=== PATIENT | female | born 1980 | race Caucasian/White ===

== ENCOUNTER 2024-08-10 19:55 | Emergency (ER) | payer MEDICAID ==
[~2024-08-10] VITALS: Ht 167.6 cm; Wt 64.0 kg
[2024-08-10 20:54] LABS: BASOPHILS % (AUTO) 0.3 % (0-1); EOSINOPHILS # (AUTO) 0.1 X10'3 (0-0.9); EOSINOPHILS % (AUTO) 1.3 % (0-6); HEMATOCRIT 36.5 % (35.0-45.0); HEMOGLOBIN 12.6 g/dl (12.0-16.0); LYMPHOCYTES % (AUTO) 21.9 % (21-51); MEAN CORPUSCULAR HGB CONC 34.6 g/dL (33.0-36.5); MEAN CORPUSCULAR VOLUME 98.3 FL (78-98); MEAN PLATELET VOLUME 8.6 FL (7.4-10.4); MONOCYTES # (AUTO) 0.4 X10'3 (0-0.9); MONOCYTES % (AUTO) 4.1 % (2-12); NEUTROPHILS # (AUTO) 6.7 X10'3 (1.8-7.7); NEUTROPHILS % (AUTO) 72.4 % (42-75); PLATELET COUNT 248 X10'3 (140-440); RED BLOOD COUNT 3.71 X10'6 (4.20-5.60); RED CELL DISTRIBUTION WIDTH 12.6 % (11.5-14.5); WHITE BLOOD COUNT 9.2 X10'3 (4.5-11.0)
[2024-08-10 20:54] LABS: BILIRUBIN,URINE NEGATIVE (Neg); CLARITY,URINE CLEAR (Clear); COLOR,URINE YELLOW (Yellow); GLUCOSE, URINE NEGATIVE (Neg); KETONES,URINE NEGATIVE (Neg); LEUKOCYTE ESTERASE ,URINE NEGATIVE (Neg); NITRITES, URINE NEGATIVE (Neg); OCCULT BLOOD,URINE NEGATIVE (Neg); PROTEIN,URINE NEGATIVE (Neg); UROBILINOGEN,URINE 0.2 E.U/dL (0.2-1.0)
[2024-08-10 20:55] LABS: URINE HCG NEGATIVE (NEG)
[2024-08-10 21:02] LABS: UA COLLECTION TYPE CLN CATCH MIDSTREAM
[2024-08-10 21:09] LABS: ALANINE AMINOTRANSFERASE 21 U/L (12-78); ALBUMIN 3.7 G/DL (3.4-5.0); ALBUMIN/GLOBULIN RATIO 1.2 (1.1-1.5); ALKALINE PHOSPHATASE 56 IU/L (46-116); ANION GAP 6 (8-16); ASPARTATE AMINO TRANSFERASE 16 U/L (10-37); BILIRUBIN,TOTAL 0.3 MG/DL (0.1-1.0); BLOOD UREA NITROGEN 26 MG/DL (7-18); BUN/CREATININE RATIO 35.6 (10.0-20.0); CALCIUM 8.7 MG/DL (8.5-10.1); CHLORIDE 104 MMOL/L (99-107); CREATININE 0.73 MG/DL (0.40-0.90); GLUCOSE 99 MG/DL (70-104); LIPASE 57 U/L (16-77); POTASSIUM 4.2 MMOL/L (3.5-5.1); SODIUM 140 MMOL/L (135-145); TOTAL CARBON DIOXIDE 30.5 MMOL/L (24-32); TOTAL PROTEIN 6.7 G/DL (6.4-8.2); eCRCL 92 ML/MIN; eGFR 87 ML/MIN
[2024-08-10 21:26] VITALS: BP 93/56; PULSE 65; RESP 16; TEMP 97.9; O2SAT 96
== END 2024-08-11 00:36 | disposition left against medical advice (07) ==
LOC: ER 19:55
DX: M54.50 Low back pain, unspecified (principal); Z53.21 Procedure and treatment not carried out due to patient leaving prior to being seen by health care provider
CPT/HCPCS: 36415; 80053; 81003; 81025; 83690; 85025

== ENCOUNTER 2025-05-17 11:00 | Inpatient (IN) | payer MEDICAID ==
[~2025-05-17] VITALS: Ht 167.6 cm; Wt 63.7 kg
--- NOTE | 2025-05-17 11:22 | Physician Documentation ---
History of Present Illness ~ Chief Complaint: Stroke Alert Stated Complaint: RT LEG NUMBNESS/DIZZNIESS Time Seen by MD: 12:56 HPI Is a pleasant 45-year-old female that presents to the emergency department for evaluation of right-sided numbness and tingling ataxia with walking and weakness reported since Friday. Patient reports that she has a significant family history for stroke most notable her mother at the age of 50. She also reports history of right ear infection for which she has recently been on Augmentin. She has chronic otitis media and has tubes in her ears bilaterally. 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 She also has history of migraine headaches Medication Reconciliation Allergies: Coded Allergies: No Known Allergies (Unverified , 05/17/25) Review of Systems All Other Systems at this time: Reviewed and Negative Constitutional: Denies: fever Respiratory: Denies: cough, orthopnea Cardiovascular: Denies: chest pain Gastrointestinal: Denies: abdominal pain, nausea, vomiting Physical Exam Vital Signs: Temperature: 98.5, Source: Temporal, Heart Rate: 73, Respiratory Rate: 18, BP: 98/56, Pulse Oximetry: 99, Weight: 63.700 Oxygen Flow Rate: 0 General Appearance Well-appearing no acute distress Head atraumatic Right TM perforated with dried blood and detritus in the external canal. No mastoid tenderness external ear intact Extraocular motions intact Pupils PERRLA Cranial nerves 2-12 intact No dysarthria no aphasia Right upper extremity 5/5 shoulder flexion elbow flexion and extension 5/5 wrist flexion 4/5 principal hardware architect strength. Intact sensation. Intact radial pulse 5/5 bilateral lower extremity strength and sensation intact warm and well- perfused Breathing Comfortably Abdomen is soft nontender Lower extremity no edema Skin pink warm dry well-perfused Progress Results/Orders Reviewed/noted all lab results: Yes Results/Orders Orders - TAYO OCHOA MD Monitor (05/17/25 11:14) 2 Large Bore Ivs (05/17/25 11:14) Chest,Single View (05/17/25 11:14) Accucheck (05/17/25 11:14) Ct Stroke Alert (05/17/25 11:30) [place] Prov.Neuro Consult (05/17/25 11:14) Page Hospitalist (05/17/25 17:27) Fill Out Med Reconciliation (05/17/25 17:27) Cta Neck/Head (05/17/25 18:01) ESR (05/17/25 17:42) C-Reactive Protein (05/17/25 17:42) Completed Orders - TAYO OCHOA MD Cbc/Diff (05/17/25 11:14) Electrocardiogram (05/17/25 11:14) Chest,Single View (05/17/25 11:14) Ct Stroke Alert (05/17/25 11:30) BMP (05/17/25 11:14) PTT (05/17/25 11:14) Pt Inr (05/17/25 11:14) Ondansetron Inj. (Zofran 4mg/2ml Vial) (05/17/25 13:25) Ringers Solution, Lacted (Lactated Ringe (05/17/25 16:00) Ketorolac Trometh 15mg/Ml Vial (Toradol (05/17/25 16:00) Cta Neck/Head (05/17/25 18:01) Iohexol 350mg/Ml 100ml (Omnipaque 350mg/ (05/17/25 17:40) Diphenhydramine Inj (Benadryl Inj.) (05/17/25 17:45) Prochlorperazine Inj (Compazine Inj) (05/17/25 17:45) Medications Received in ER Medications (Trade) Dose Ordered Sig/Jessica Route PRN Reason Start Time Stop Time Status Last Admin Dose Admin (Zofran 4mg/2ml vial) 4 mg ONCE ONCE IV 05/17/25 13:25 05/17/25 13:26 DC 05/17/25 13:36 4 MG (Tylenol tablet) 650 mg ONCE ONCE PO 05/17/25 15:30 05/17/25 15:31 DC 05/17/25 15:43 650 MG Lactated Ringer's 1,000 ml @ 1,000 mls/hr ONCE ONCE IV 05/17/25 16:00 05/17/25 16:59 DC 05/17/25 16:18 1,000 MLS/HR (Toradol injection) 15 mg ONCE ONCE IV 05/17/25 16:00 05/17/25 16:01 DC 05/17/25 16:17 15 MG (Benadryl inj.) 25 mg ONCE ONCE IV 05/17/25 17:45 05/17/25 17:46 DC 05/17/25 18:19 25 MG (Compazine inj) 10 mg ONCE ONCE IV 05/17/25 17:45 05/17/25 17:46 DC 05/17/25 18:19 10 MG Vital Signs 05/17/25 05/17/25 05/17/25 05/17/25 11:10 12:00 13:00 14:25 Temp 98.5 Pulse 73 71 64 Resp 18 18 15 16 B/P (MAP) 98/56 90/50 (63) 93/54 (67) Pulse Ox 99 98 97 O2 Flow Rate 0 0 0 05/17/25 16:17 Resp 18 Laboratory Tests Test 05/17/25 11:14 05/17/25 11:22 Glucometer 109 H White Blood Count 7.0 Red Blood Count 4.44 Hemoglobin 14.6 Hematocrit 42.1 Mean Corpuscular Volume 94.9 Mean Corpuscular Hemoglobin 32.9 H Mean Corpuscular Hemoglobin Concent 34.7 Red Cell Distribution Width 12.4 Platelet Count 285 Mean Platelet Volume 8.9 Neutrophils (%) (Auto) 55.3 Lymphocytes (%) (Auto) 35.6 Monocytes (%) (Auto) 6.6 Eosinophils (%) (Auto) 2.2 Basophils (%) (Auto) 0.3 Neutrophils # (Auto) 3.9 Lymphocytes # (Auto) 2.5 Monocytes # (Auto) 0.5 Eosinophils # (Auto) 0.2 Basophils # (Auto) 0.0 CBC Comment Prothrombin Time 10.8 INR International Normalized Ratio 1.1 Activated Partial Thromboplast Time 24 Coagulation Comments Sodium Level 142 Potassium Level 3.4 L Chloride Level 104 Carbon Dioxide Level 29.3 Anion Gap 9 Blood Urea Nitrogen 21 H Creatinine 0.80 Estimated GFR/1.73 m2 78 BUN/Creatinine Ratio 26.3 H Glucose Level 84 Calcium Level 8.5 Albumin 4.1 Chemistry Comments EKG/XRAY/CT/US/VASC/MRI CT : Impression Independent interpretation of head CT shows no intracranial hemorrhage Medical Decision Making Additional information obtaine: family Findings 45-year-old female history of remote brain mass status post resection, multiple ear surgeries and recurrent otitis media presenting for dizziness right arm paresthesia and general unsteadiness ongoing the last 24 hours. When I see the patient she has a very subtle weakness with her right principal hardware architect strength otherwise unremarkable neuro exam. You are not grossly infected no signs of obvious mastoiditis no fever. CT head nonacute. Neurology consulted felt likely related to inner ear infection. Given her lack of improvement in symptoms I elected to admit the patient for further evaluation and management Differential Dx:Considerations: Include: Other Departure Disposition: ADMITTED INPATIENT Admitted to Inpatient Unit: to hospitalist Impression: Primary Impression: Vertigo Referrals: NO PRIMARY CARE PROVIDER (PCP) Signature Scribe Signature: na Attestation: AARON Olivares May 17, 2025 11:22 TAYO OCHOA MD May 17, 2025 17:28
[2025-05-17 11:42] LABS: MEAN PLATELET VOLUME 8.9 FL (7.4-10.4); RED CELL DISTRIBUTION WIDTH 12.4 % (11.5-14.5)
[2025-05-17 11:54] LABS: CREATININE 0.80 MG/DL (0.40-0.90); TOTAL CARBON DIOXIDE 29.3 MMOL/L (24-32); eCRCL 83 ML/MIN; eGFR 78 ML/MIN
[2025-05-17 11:56] LABS: APTT 24 SECONDS (22-32); INR 1.1 INR
--- NOTE | 2025-05-17 12:01 | RADIOLOGY REPORT ---
CHEST RADIOGRAPH Indication: Stroke Alert Technique: Single frontal view of the chest was obtained Comparison: None FINDINGS: Lines and Tubes: None Lungs: No focal consolidation. Pleura: No effusion. No pneumothorax. Cardiomediastinal contours: Unremarkable Bones: No acute osseous abnormality. IMPRESSION: No acute cardiopulmonary disease.
--- NOTE | 2025-05-17 12:02 | RADIOLOGY REPORT ---
CT CT STROKE ALERT Indication: Stroke Alert EXAM DATE: 05/17/2025 11:27 AM COMPARISON: None TECHNIQUE: CT of the head without intravenous contrast. RADIATION DOSE: CTDIvol: 62 mGy, DLP: 1173 mGy*cm FINDINGS: There is no intracranial hemorrhage. There is no extra-axial fluid, mass, mass effect or midline shift. The ventricles are midline and normal in size. Basilar cisterns are patent. Carrington-white differentiation is maintained. The paranasal sinuses and mastoids are well-pneumatized. Imaged portion of the orbits are unremarkable. IMPRESSION: No intracranial hemorrhage or mass effect.
--- NOTE | 2025-05-17 12:04 | ELECTROCARDIOGRAPH REPORT ---
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 ANA ROSA Sotelo Measurements Intervals [place] Rate: 73 P: 47 LA: 134 QRS: 55 QRSD: 89 T: 46 QT: 388 QTc: 428 Interpretive Statements Sinus rhythm Electronically Signed On 05-20-2025 17:59:[address] ANA ROSA Sotelo Please click the below link to view image of tracing.
--- NOTE | 2025-05-17 13:12 | [facility] CONSULT REPORT ---
[facility] Procedure Note [facility] Procedure Note Consult [facility] Note # Demographics Consult Type: Acute Stroke Level 2 (4.5-24 hrs) Patient Location: Emergency Room First Name: DINA Last Name: SIERRA Date of : 1980 Age: 45 Gender: Female Facility: [facility] Time of Initial Page (): 05/17/2025 12:54 First Contact with Site (): 05/17/2025 12:54 # HPI History: Patient with a recent history of otitis externa who presents with 24 hours of dizziness and unsteadiness. She reports increasing imbalance over the past week. There are no focal neurological deficits noted on examination, and no evidence of dysmetria. The patient has not experienced any other symptoms. Last Known Normal: > 24 hours # Scores Time of exam and NIHSS (): 05/17/2025 13:07 Level of Consciousness 1a: [0] = Alert; keenly responsive LOC Questions 1b: [0] = Answers both questions correctly LOC Commands 1c: [0] = Performs both tasks correctly Best Gaze 2: [0] = Normal Visual 3: [0] = No visual loss Facial Palsy 4: [0] = Normal symmetrical movements Motor Arm Left 5a: [0] = No drift Motor Arm Right 5b: [0] = No drift Motor Leg Left 6a: [0] = No drift Motor Leg Right 6b: [0] = No drift Limb Ataxia 7: [0] = Absent Sensory 8: [0] = Normal Best Language 9: [0] = No aphasia Dysarthria 10: [0] = Normal Extinction and Inattention 11: [0] = No abnormality NIHSS Total: 0 # Data Head CT: - no bleed - per radiologist read # Assessment Impression: - Vertigo Favor peripheral cause. MRI brain if sx persist and no etiology identified. CTA is being done as part of stroke alert # Plan Thrombolytic/Intervention: NOT IV Thrombolysis or IA Intervention candidate Thrombolytic/Intraarterial Exclusion: - IV thrombolytic and IA intervention considered but not recommended as this patient's symptoms are not clinically consistent with an assumed diagnosis of stroke Imaging: (urgency: STAT): - CT Angiogram Head and CT Angiogram Neck AND call back with results if abnormal Other: - If patient has any neurological deterioration please call me back immediately - I have discussed my recommendations with the referring provider - would not pursue stroke work-up if MRI is negative # Logistics Attestation of consult completion: The patient is located at: [facility]. Facility staff participated in the visit. I performed this telemedicine visit from my offsite office utilizing interactive 2 way audio and visual telecommunication technology at the request of the onsite emergency room provider. Total time spent in telemedicine encounter: I spent 21 minutes reviewing clinical data and/or imaging, obtaining history, examining the patient, communicating with the onsite care team, and in preparation of this report. Critical Care time: 21 minutes of this encounter were critical care time. Due to a high probability of clinically significant, life-threatening neurologic deterioration, the patient required my highest level of preparedness to intervene emergently. I spent this critical care time managing the patient in conjunction with on-site providers who requested my consultation. In addition to the above, this critical care time included recommendation and review of studies, including imaging; arranging an urgent treatment and management plan with on-site providers; evaluation of patient's response to treatment; and documentation. This critical care time was performed to assess and manage the high probability of imminent, life-threatening deterioration that could result in neurologic catastrophe. # Demographics First Name: DINA Last Name: SIERRA Facility: [facility] Electronically signed at 05/17/2025 13:12 ([place] Time) by Kit Keller MD Neuro Consult Order placed for: Yes GEETHA KELLER MD May 17, 2025 13:12
[2025-05-17] MEDS: ondansetron/PF 4mg/2ml inj IV ONE (13:36)
[2025-05-17] MEDS: ketorolac trometh 15mg/ml vial 15 MG/ML ML IV ONE (16:17)
[2025-05-17] MEDS: ringers solution, lacted 1,000 ML IV ONE (16:18)
--- NOTE | 2025-05-17 18:08 | HISTORY AND PHYSICAL ---
History & Physical Providers to Chief complaint, a right side paresthesia ~ History of Present Illness Reason for Admit\Complaint: As above History of Present Illness This is a Is a pleasant 45-year-old female with history of multiple medical problems as a child, including brain tumor removal, multiple bilateral year otitis media associated with tube placement, a right side tympanic membrane tube present now, for the last 20 years, history of hypertension, recently on augmented treatment for right otitis media, presented today to emergency department chief complaint right side weakness, patient was sent to ER by her provider to rule out intracranial inflammation; in addition this is the patient that presents to the emergency department for evaluation of right-sided numbness and tingling ataxia with walking and weakness reported since Friday. Patient reports that she has a significant family history for stroke most notable her mother at the age of 50. In emergency department patient was evaluated by physician as well as by virtual neurologist, CTA of the head and neck was ordered and pending, and decision was made to admit patient for further evaluation and treatment with the working diagnosis of vertigo, no additional complaint or concern. 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 Pulse Oximetry reflects adequate oxygenation. BMI is 22, weight 63 kg General: well developed, well nourished. Awake , alert, and oriented x4, resting comfortably in the bed, in no acute distress . Skin: Warm, dry, no pallor, no rash or petechiae. HEENT: Atraumatic, normocephalic, EOMI, anicteric sclera B; pink conjunctiva; PERRLA, normal oropharynx, moist oral and nasal mucosa. Tympanic membrane , nose , throat clear. Locally, a right tympanic membrane with a tube present in side, scanty serous discharge. Neck: Trachea midline. Supple, full range of motion, no JVD, bruit , hepatojugular reflex , lymphadenopathy or masses, or other lesions Cardiac: Regular rhythm, regular rate no murmurs, rubs, or gallops. Normal S1 and S2, no S3 noticed. PMI is normal. Respiratory: Equal breath sounds bilaterally, no tachypnea; lungs clear to auscultation bilaterally, no wheezing ,rub or rales, or crackles. Chest wall is symmetric and without deformity. No signs of trauma. Chest wall is nontender. No signs of respiratory distress. Resonance is normal upon percussion bilaterally. Gastrointestinal: Abdomen symmetric, non-distended, soft, non-tender, normal bowel sounds x4 quadrant, normoactive, no hepatosplenomegaly , no masses , no bruit, no flank pain bilaterally. No voluntary guarding, rebound, or rigidity. No tenderness to percussion. No pulsatile masses. Equal femoral pulses. No Scott's sign or McBurney point tenderness. Back; no CVA tenderness bilaterally, no deformities. Neck and back are without deformity as well. No tenderness noted on palpation of the spinous processes. Spinous processes are midline. Cervical, thoracic, and lumbar paraspinal muscles are not tender and are without spasm. : Not indicated Musculoskeletal: Extremities, normal range of motion, non-tender, muscle strength 5/5 x 4. Negative Homans signs bilaterally on lower extremity. Distal pulses full symmetrical, no clubbing, cyanosis , edema. Neurological: Speech is clear, alert, and oriented x 4. No motor or sensory deficit, deep tendon reflexes normal, cerebellar intact. Cranial nerves II-XII intact. Psych: Alert and or appropriate, normal affect. Vascular: Good distal pulses, which are equal x4; capillary refill less than 2 seconds. Lymphatic, no lymphadenopathy. Diagnostic Data Last Recorded Lab Results: 05/17/25 1122 05/17/25 1122 Diagnostic Data: Laboratory Tests Test 05/17/25 11:22 Prothrombin Time 10.8 SECONDS (9.0-12.0) INR International Normalized Ratio 1.1 INR Activated Partial Thromboplast Time 24 SECONDS (22-32) Coagulation Comments Advance Care Planning Advanced Care plannin - 30 Minutes Additional Plan Assessment Complicated a right side otitis media, partially treated Vertigo A right side paresthesia, resolved Acute one event of urinary incontinence, resolved Gait disorder, ataxic, resolved Hypokalemia Hypovolemia History of brain tumor removal history of multiple bilateral otitis media treated with tubes 20 years ago Plan IV antibiotics, fluids keep patient well hydrated euvolemic Replace electrolytes CTA neck head pending MRI of the head pending PT evaluation and treatment Additional lab work pending Patient was evaluated by virtual neurologist, recommendation to be implemented I reconciled home medications DVT gastropathy prophylaxis addressed Sepsis Screening Reassessment Date: May 17, 2025 Date of Service: May 17, 2025 Billing Provider: ISAAC DUDLEY MD Common Visit Codes: 53871-AXFMTVA INP/OBS CARE (HIGH) Secondary Visit Codes: 91107-[id number] CARE PLAN 30 MINUTES ISAAC DUDLEY MD May 17, 2025 18:08
--- NOTE | 2025-05-17 18:13 | RADIOLOGY REPORT ---
EXAM: CT CTA NECK/HEAD DATE OF SERVICE: 05/17/2025 05:41 PM ORDERING PHYSICIAN: TAYO OCHOA REASON FOR EXAM: TECHNIQUE: CTA of the brain and neck was performed after the administration of contrast . Axial images of the head and neck are obtained. Coronal and sagittal images were then reformatted for review. MIP reformats were obtained and reviewed. COMPARISON: CT head from today FINDINGS: FINDINGS: The right common carotid artery demonstrates no high-grade stenosis. Right internal carotid artery demonstrates no high-grade stenosis. Right middle cerebral artery demonstrates no high-grade stenosis. The right anterior cerebral artery demonstrates no high-grade stenosis. The left common carotid artery demonstrates no high-grade stenosis. Left internal carotid artery demonstrates no high-grade stenosis. The left middle cerebral artery demonstrates no high-grade stenosis. The left anterior cerebral artery demonstrates no high-grade stenosis. The right vertebral artery demonstrates no high-grade stenosis. The left vertebral artery demonstrates no high-grade stenosis. Basilar artery demonstrates no high-grade stenosis. The bilateral posterior cerebral arteries demonstrate no high-grade stenosis. origin right posterior cerebral artery. Bibasilar pulmonary atelectasis. Tiny bilateral pleural effusions. IMPRESSION: No large vessel high-grade stenosis.
[2025-05-17] MEDS ORDERED: mag hydrox/Alum hydrox/simeth 30ml oral suspension PO PRN (18:15)
[2025-05-17] MEDS ORDERED: magnesium sulf-water 2g/50mL 50 ML IV PRN (18:15)
[2025-05-17] MEDS ORDERED: magnesium Cl slow-release 64mg tablet PO PRN (18:15)
[2025-05-17] MEDS ORDERED: potassium Cl 20 mEq SR tablet PO PRN (18:15)
[2025-05-17] MEDS ORDERED: magnesium sulf-water 4G/100mL 100 ML IV PRN (18:15)
[2025-05-17] MEDS ORDERED: ondansetron/PF 4mg/2ml inj IV PRN (18:15)
[2025-05-17] MEDS ORDERED: bisacodyl 10mg suppository rectal RC PRN (18:15)
[2025-05-17] MEDS ORDERED: potassium Cl 40MEQ/1/2NS 520ml 520 ML IV PRN (18:15)
[2025-05-17] MEDS ORDERED: acetaminophen 650mg rectal suppository RC PRN (18:15)
[2025-05-17] MEDS: potassium Cl 20mEq in NS 1,000 ML IV SCH (19:06)
[2025-05-17 19:21] LABS: PHOSPHORUS 4.1 MG/DL (2.3-4.5); PRO BRAIN NATRIURETIC PEPTIDE 87.0 PG/ML (0-125)
[2025-05-17 20:50] VITALS: BP 98/56; PULSE 72; RESP 16; TEMP 98.5; O2SAT 96
[2025-05-17 21:30] VITALS: RESP 18; O2SAT 96
[2025-05-17] MEDS: docusate sod 100mg capsule PO SCH (21:41)
[2025-05-17] MEDS: heparin, porcine 5000 units/ml vial SQ SCH (21:42)
[2025-05-17] MEDS: potassium Cl 20 mEq SR tablet PO PRN (21:44)
[2025-05-17] MEDS: K and/or MAG REPLACEMENT MC SCH (21:53)
[2025-05-17 22:00] VITALS: BP 94/55; PULSE 67; RESP 16; TEMP 98.1; O2SAT 97
[2025-05-18 03:55] LABS: MEAN PLATELET VOLUME 8.7 FL (7.4-10.4); RED CELL DISTRIBUTION WIDTH 12.3 % (11.5-14.5)
[2025-05-18 04:14] LABS: CREATININE 0.75 MG/DL (0.40-0.90); TOTAL CARBON DIOXIDE 31.7 MMOL/L (24-32); eCRCL 89 ML/MIN; eGFR 84 ML/MIN
[2025-05-18] MEDS: HYDROcodone/acetaminophen 5mg/325mg tablet PO PRN (05:01)
[2025-05-18 06:00] VITALS: BP 95/51; PULSE 56; RESP 14; TEMP 98.5; O2SAT 95
[2025-05-18] MEDS ORDERED: FLUO-12 PO (08:27)
[2025-05-18] MEDS ORDERED: GABA-530 PO (08:28)
[2025-05-18] MEDS ORDERED: BUSP10TA11 PO (08:29)
[2025-05-18] MEDS: pantoprazole 40mg Tablet.DR PO SCH (08:33)
[2025-05-18] MEDS: CefTRIAXone/D5W-Rocephin 1gm 50 ML IV SCH (08:34)
[2025-05-18 10:00] VITALS: BP 108/57; PULSE 74; RESP 17; TEMP 98.9; O2SAT 97
[2025-05-18 10:40] VITALS: RESP 14; O2SAT 95
--- NOTE | 2025-05-18 12:14 | RADIOLOGY REPORT ---
PROCEDURE: MR MRI HEAD Indication: Paresthesia, right side, history of brain tumor surgeries COMPARISON: 05/17/2025 TECHNIQUE: Multiplanar multisequence images of the brain are obtained. FINDINGS: There is no abnormal diffusion restriction. There is no intracranial hemorrhage. No extra-axial fluid collection, mass effect or midline shift. The ventricles are midline and normal in size. The cisterns are patent. Normal intracranial flow voids are preserved. No abnormal susceptibility signal. The sinuses and mastoids are well pneumatized. The visualized orbits are unremarkable. IMPRESSION: No acute cerebrovascular ischemia. If there is history of brain tumor, recommend obtaining MRI brain with contrast further evaluate.
--- NOTE | 2025-05-18 12:15 | RADIOLOGY REPORT ---
EXAM: MR MRI THORACIC SPINE CLINICAL HISTORY: R side paresthesia; spine pain COMPARISON: None Technique: MRI of the thoracic spine was performed without contrast. Findings: Limited evaluation of the right lower thoracic spine foramina and posterior elements, out of field of view. Vertebral alignment is anatomic. Degenerate endplate changes multilevel thoracic spine probable Schmorl's nodes, causing minimal height loss in the mid thoracic spine. No edema to suggest acute fracture. The spinal cord has a normal caliber and signal intensity. No significant spinal canal or foraminal stenosis at any level. Small right pleural effusion. IMPRESSION: Limited study as described. No acute fracture or subluxation. Degenerate endplate changes. No significant spinal canal or foraminal stenosis. Small right pleural effusion.
--- NOTE | 2025-05-18 12:20 | RADIOLOGY REPORT ---
EXAM: MR MRI C SPINE CLINICAL HISTORY: R side paresthesia; spine pain COMPARISON: MR MRI THORACIC SPINE on DOS: 05/18/25 Technique: MRI of the cervical spine was performed without contrast. Findings: Vertebral body height is preserved. Vertebral body alignment is within normal limits. Vertebral marrow signal is essentially normal. No spinal cord edema. C2-3: No significant spinal canal or foraminal stenosis. C3-4: No significant spinal canal or foraminal stenosis. C4-5: Mild bilateral uncovertebral hypertrophy. No significant spinal canal or foraminal stenosis. C5-6: Disc bulge and uncovertebral hypertrophy. Mild left foraminal stenosis. No significant spinal canal narrowing. C6-7: Disc bulge with uncovertebral hypertrophy. Mild bilateral foraminal stenosis. Mild spinal canal narrowing. C7-T1: No significant spinal canal or foraminal stenosis. Subcentimeter right thyroid cystic nodule. IMPRESSION: Mild degenerative changes of the cervical spine. No high-grade spinal canal or foraminal stenosis.
[2025-05-18] MEDS: HYDROcodone/acetaminophen 10/325mg tab PO PRN (17:16)
[2025-05-18] MEDS: magnesium hydroxide 30ml (MOM) UD suspension PO PRN (17:22)
[2025-05-18 18:00] VITALS: BP 104/66; PULSE 75; RESP 16; TEMP 99.6; O2SAT 96
--- NOTE | 2025-05-18 19:47 | PROGRESS NOTE ---
Daily Progress Note Providers to CC Feels better today, pain well controlled ~ Central Line/PICC still needed: No Arce-Non Protocol Arce Indications Met/Not Met: F/C Indications Not Met Antibiotic Timeout Antibiotic Ordered?: Yes MRSA Education MRSA Education Provided to pt: Yes Subjective As above Objective Vital Signs Date Time Temp Pulse Resp B/P (MAP) Pulse Ox O2 Delivery O2 Flow Rate FiO2 05/18/25 18:33 16 05/18/25 10:40 95 Room Air 0.0 05/18/25 10:00 98.9 74 108/57 (74) Vital signs, stable ,afebrile. Pulse Oximetry reflects adequate oxygenation. General: well developed, well nourished. Awake , alert, and oriented x4, resting comfortably in the bed, in no acute distress . Skin: Warm, dry, no pallor, no rash or petechiae. HEENT: Atraumatic, normocephalic, EOMI, anicteric sclera B; pink conjunctiva; PERRLA, normal oropharynx, moist oral and nasal mucosa. Tympanic membrane , nose , throat clear. Neck: Trachea midline. Supple, full range of motion, no JVD, bruit , hepatojugular reflex , lymphadenopathy or masses, or other lesions Cardiac: Regular rhythm, regular rate no murmurs, rubs, or gallops. Normal S1 and S2, no S3 noticed. PMI is normal. Respiratory: Equal breath sounds bilaterally, no tachypnea; lungs clear to auscultation bilaterally, no wheezing ,rub or rales, or crackles. Chest wall is symmetric and without deformity. No signs of trauma. Chest wall is nontender. No signs of respiratory distress. Resonance is normal upon percussion bilaterally. Gastrointestinal: Abdomen symmetric, non-distended, soft, non-tender, normal bowel sounds x4 quadrant, normoactive, no hepatosplenomegaly , no masses , no bruit, no flank pain bilaterally. No voluntary guarding, rebound, or rigidity. No tenderness to percussion. No pulsatile masses. Equal femoral pulses. No Scott's sign or McBurney point tenderness. Back; no CVA tenderness bilaterally, no deformities. Neck and back are without deformity as well. No tenderness noted on palpation of the spinous processes. Spinous processes are midline. Cervical, thoracic, and lumbar paraspinal muscles are not tender and are without spasm. Musculoskeletal: Extremities, normal range of motion, non-tender, muscle strength 5/5 x 4. Negative Homans signs bilaterally on lower extremity. Distal pulses full symmetrical, no clubbing, cyanosis , edema. Neurological: Speech is clear, alert, and oriented x 4. No motor or sensory deficit, deep tendon reflexes normal, cerebellar intact. Cranial nerves II-XII intact. Psych: Alert and or appropriate, normal affect. Vascular: Good distal pulses, which are equal x4; capillary refill less than 2 seconds. Lymphatic, no lymphadenopathy. Result Diagram: 05/18/25 0344 05/18/25 0344 Coagulation Studies Laboratory Tests Test 05/17/25 11:22 Prothrombin Time 10.8 SECONDS (9.0-12.0) INR International Normalized Ratio 1.1 INR Activated Partial Thromboplast Time 24 SECONDS (22-32) Coagulation Comments Problem\Assessment\Plan Assessment Complicated a right side otitis media, partially treated Vertigo A right side paresthesia, resolved Acute one event of urinary incontinence, resolved Gait disorder, ataxic, resolved Hypokalemia Hypovolemia History of brain tumor removal history of multiple bilateral otitis media treated with tubes 20 years ago Plan IV antibiotics, fluids keep patient well hydrated euvolemic Replace electrolytes CTA neck head completed MRI of the head completed PT evaluation and treatment Additional lab work pending Patient was evaluated by virtual neurologist, recommendation to be implemented I reconciled home medications DVT gastropathy prophylaxis addressed Sepsis Screening Reassessment Date: May 18, 2025 Date of Service: May 18, 2025 Billing Provider: ISAAC DUDLEY MD Common Visit Codes: [id number] INP/OBS CARE(HIGH) ISAAC DUDLEY MD May 18, 2025 19:47
[2025-05-18 20:00] VITALS: RESP 16; O2SAT 96
[2025-05-18] MEDS: ondansetron 4mg rapidly disintigrating tab PO PRN (21:14)
[2025-05-18 22:00] VITALS: BP 103/56; PULSE 72; RESP 16; TEMP 98.1; O2SAT 97
[2025-05-18] MEDS ORDERED: TRAZ-251 PO (22:20)
[2025-05-19 04:00] LABS: MEAN PLATELET VOLUME 8.4 FL (7.4-10.4); RED CELL DISTRIBUTION WIDTH 12.4 % (11.5-14.5)
[2025-05-19 04:16] LABS: CREATININE 0.71 MG/DL (0.40-0.90); TOTAL CARBON DIOXIDE 32.4 MMOL/L (24-32); eCRCL 94 ML/MIN; eGFR 89 ML/MIN
[2025-05-19 06:44] VITALS: BP 102/61; PULSE 66; RESP 18; TEMP 98.6; O2SAT 95
[2025-05-19] MEDS: normal saline 500ml IV soln 500 ML IV ONE (08:45)
[2025-05-19] MEDS: metoclopramide 5 mg/ml inj IV PRN (09:02)
[2025-05-19 09:57] LABS: LEUKOCYTE ESTERASE ,URINE NEGATIVE (Neg); NITRITES, URINE NEGATIVE (Neg); OCCULT BLOOD,URINE NEGATIVE (Neg)
[2025-05-19 09:58] LABS: UA COLLECTION TYPE NON-SPECIFIED
[2025-05-19 10:00] VITALS: BP 106/54; PULSE 80; RESP 16; TEMP 98.5; O2SAT 97
[2025-05-19 10:06] LABS: URINE AMPHETAMINE SCREEN NEGATIVE (Neg); URINE BARBITUATE SCREEN NEGATIVE (Neg); URINE BENZODIAZEPINES SCREEN NEGATIVE (Neg); URINE CANNABINOID SCREEN NEGATIVE (Neg); URINE COCAINE SCREEN NEGATIVE (Neg); URINE METHADONE SCREEN NEGATIVE (Neg); URINE OPIATE SCREEN NEGATIVE (Neg); URINE PHENCYCLIDINE SCREEN NEGATIVE (Neg)
[2025-05-19 10:22] VITALS: RESP 18; O2SAT 95
[2025-05-19 10:48] VITALS: RESP 14
[2025-05-19] MEDS: diazepam inj 5 MG/ML inj. IV ONE (10:48)
--- NOTE | 2025-05-19 11:12 | RADIOLOGY REPORT ---
PROCEDURE: MR MRA HEAD INDICATION: history of brain tumor Exam Date: 05/18/2025 10:34 AM COMPARISON: MR MRI HEAD on DOS: 05/18/25, CT CTA NECK/HEAD on DOS: 05/17/25 TECHNIQUE: MRA head without and with intravenous contrast. 3D image postprocessing was performed on a dedicated workstation and images were used for interpretation and reporting. FINDINGS: MRA head: There is preserved enhancement within the bilateral distal internal carotid arteries. There is preserved enhancement within the anterior and middle cerebral arteries. There is preserved enhancement within the vertebral arteries, basilar artery, cerebellar arteries and posterior cerebral arteries. There is no evidence of hemodynamically significant intracranial stenosis, proximal occlusion or aneurysm. No abnormal venous signal is seen. IMPRESSION: No evidence of hemodynamically significant intracranial stenosis, proximal occlusion or aneurysm.
[2025-05-19] MEDS ORDERED: MECL-226 PO (11:56)
--- NOTE | 2025-05-19 15:49 | DISCHARGE SUMMARY ---
Discharge Summary Providers to CC Patient is feeling Better today asking to be discharged home ~ Discharge Summary Assessment Complicated a right side otitis media, partially treated Vertigo A right side paresthesia, resolved Acute one event of urinary incontinence, resolved Gait disorder, ataxic, resolved Hypokalemia Hypovolemia History of brain tumor removal history of multiple bilateral otitis media treated with tubes 20 years ago Admission Diagnosis: Verigo R Otitis media Admission Diagnosis Comment: Complicated a right side otitis media, partially treated Vertigo A right side paresthesia, resolved Acute one event of urinary incontinence, resolved Gait disorder, ataxic, resolved Hypokalemia Hypovolemia History of brain tumor removal history of multiple bilateral otitis media treated with tubes 20 years ago Hospital Course DATE OF ADMISSION: May 17, 2025 DATE OF DISCHARGE: May 19, 2025 Discharge Diagnosis\Comment: Complicated a right side otitis media, partially treated Vertigo A right side paresthesia, resolved Acute one event of urinary incontinence, resolved Gait disorder, ataxic, resolved Hypokalemia Hypovolemia History of brain tumor removal history of multiple bilateral otitis media treated with tubes 20 years ago Operations\Procedures: Non Consultants: Virtual neurologist Complications: None Condition on DC: Stable Discharge Summary: This is a Is a pleasant 45-year-old female with history of multiple medical problems as a child, including brain tumor removal, multiple bilateral year otitis media associated with tube placement, a right side tympanic membrane tube present now, for the last 20 years, history of hypertension, recently on augmented treatment for right otitis media, presented today to emergency department chief complaint right side weakness, patient was sent to ER by her provider to rule out intracranial inflammation; in addition this is the patient that presents to the emergency department for evaluation of right-sided numbness and tingling ataxia with walking and weakness reported since Friday. Patient reports that she has a significant family history for stroke most notable her mother at the age of 50. In emergency department patient was evaluated by physician as well as by virtual neurologist, CTA of the head and neck was ordered and pending, and decision was made to admit patient for further evaluation and treatment with the working diagnosis of vertigo, no additional complaint or concern. To admission patient was extensively evaluated treated today she is feeling better asking to be discharged home medication reconciled follow-up PCP Neurology an ENT doctor in three days, today on physical exam Vital signs, stable ,afebrile. Pulse Oximetry reflects adequate oxygenation. General: well developed, well nourished. Awake , alert, and oriented x4, resting comfortably in the bed, in no acute distress . Skin: Warm, dry, no pallor, no rash or petechiae. HEENT: Atraumatic, normocephalic, EOMI, anicteric sclera B; pink conjunctiva; PERRLA, normal oropharynx, moist oral and nasal mucosa. Tympanic membrane , nose , throat clear. Neck: Trachea midline. Supple, full range of motion, no JVD, bruit , hepatojugular reflex , lymphadenopathy or masses, or other lesions Cardiac: Regular rhythm, regular rate no murmurs, rubs, or gallops. Normal S1 and S2, no S3 noticed. PMI is normal. Respiratory: Equal breath sounds bilaterally, no tachypnea; lungs clear to auscultation bilaterally, no wheezing ,rub or rales, or crackles. Chest wall is symmetric and without deformity. No signs of trauma. Chest wall is nontender. No signs of respiratory distress. Resonance is normal upon percussion bilaterally. Gastrointestinal: Abdomen symmetric, non-distended, soft, non-tender, normal bowel sounds x4 quadrant, normoactive, no hepatosplenomegaly , no masses , no bruit, no flank pain bilaterally. No voluntary guarding, rebound, or rigidity. No tenderness to percussion. No pulsatile masses. Equal femoral pulses. No Scott's sign or McBurney point tenderness. Back; no CVA tenderness bilaterally, no deformities. Neck and back are without deformity as well. No tenderness noted on palpation of the spinous processes. Spinous processes are midline. Cervical, thoracic, and lumbar paraspinal muscles are not tender and are without spasm. Musculoskeletal: Extremities, normal range of motion, non-tender, muscle strength 5/5 x 4. Negative Homans signs bilaterally on lower extremity. Distal pulses full symmetrical, no clubbing, cyanosis , edema. Neurological: Speech is clear, alert, and oriented x 4. No motor or sensory deficit, deep tendon reflexes normal, cerebellar intact. Cranial nerves II-XII intact. Psych: Alert and or appropriate, normal affect. Vascular: Good distal pulses, which are equal x4; capillary refill less than 2 seconds. Lymphatic, no lymphadenopathy. *Problems/Diagnosis: (1) Vertigo Status: Acute Total Time Spent on D/C: > 30 Minutes Date of Service: May 19, 2025 Billing Provider: ISAAC DUDLEY MD Common Visit Codes: 07896-LBC/OBS DISCH DAY >30min ISAAC DUDLEY MD May 19, 2025 15:49
== END 2025-05-19 15:00 | disposition home or self-care (01) | DRG 113 ==
LOC: ER 11:02 → ED HOLD 18:19 → EDBEDREQ 20:00 → SUR 3N 20:46
PROVIDERS: ADMIT Family Medicine; ATTEND Family Medicine
PROC: B3251ZZ Computerized Tomography (CT Scan) of Bilateral Common Carotid Arteries using Low Osmolar Contrast (ICD-10-PCS; principal; 2025-05-17)
PROC: B32G1ZZ Computerized Tomography (CT Scan) of Bilateral Vertebral Arteries using Low Osmolar Contrast (ICD-10-PCS; 2025-05-17)
PROC: B32R1ZZ Computerized Tomography (CT Scan) of Intracranial Arteries using Low Osmolar Contrast (ICD-10-PCS; 2025-05-17)
PROC: B3281ZZ Computerized Tomography (CT Scan) of Bilateral Internal Carotid Arteries using Low Osmolar Contrast (ICD-10-PCS; 2025-05-17)
DX: H66.91 Otitis media, unspecified, right ear (principal); E86.1 Hypovolemia; I10 Essential (primary) hypertension; E87.6 Hypokalemia; G43.909 Migraine, unspecified, not intractable, without status migrainosus; R20.0 Anesthesia of skin; R20.2 Paresthesia of skin; R27.0 Ataxia, unspecified; R32 Unspecified urinary incontinence; Z79.899 Other long term (current) drug therapy; Z82.3 Family history of stroke
CPT/HCPCS: 36415; 70450; 70496; 70498; 70544; 70551; 71045; 72141; 72146; 80048; 80053; 80305; 81003; 82550; 82948; 83605; 83690; 83735; 83880; 84100; 84443; 85025; 85610; 85651; 85730; 86140; 87040; 87081; 93005; 96374; 96375; 99285; G0378; J0696; J0780; J1200; J1644; J1885; J2270; J2405; J2765; J3360; J3480; J7040; J7120; J8597; Q9967